=== PATIENT | female | born 1985 | race Asian ===

== ENCOUNTER 2017-01-23 00:30 | Inpatient (IN) | payer SELFPAY ==
[~2017-01-23] VITALS: Ht 162.6 cm; Wt 65.8 kg
[2017-01-23] MEDS ORDERED: PREN1SGL25 PO (01:44)
[2017-01-23] MEDS ORDERED: LACTATED RINGERS 1,000 ML IV SCH (01:44)
[2017-01-23] MEDS ORDERED: PROMETHAZINE 25 MG/ML VIAL IVP PRN (01:45)
[2017-01-23] MEDS ORDERED: METHYLERGONOVINE 0.2 MG/ML AMP IM PRN (01:45)
[2017-01-23] MEDS ORDERED: CARBOPROST 250 MCG/ML AMP IM PRN (01:45)
[2017-01-23] MEDS ORDERED: OXYTOCIN 10 UNITS/ML VIAL IM SCH (01:45)
[2017-01-23] MEDS ORDERED: NALBUPHINE HYDROCHLORIDE 10 MG/ML VIAL IVP PRN (01:45)
[2017-01-23] MEDS ORDERED: OXYTOCIN 20 UNITS/LR PREMIX 1,000 ML IV PRN (01:45)
[2017-01-23] MEDS ORDERED: MISOPROSTOL 25 MCG TAB VG PRN (01:50)
[2017-01-23] MEDS ORDERED: MISOPROSTOL 25 MCG TAB ONE (02:56)
[2017-01-23] MEDS ORDERED: OXYTOCIN 20 UNITS/LR PREMIX 1,000 ML IV ONE (03:04)
[2017-01-23 03:22] LABS: BASOPHILS % (AUTO) 0.3 % (0.0-2.0); EOSINOPHILS # (AUTO) 0.2 K/uL (0-0.4); EOSINOPHILS % (AUTO) 2.3 % (0.0-4.0); HEMATOCRIT 34.5 % (36-48); HEMOGLOBIN 11.6 g/dL (12.0-16.0); LYMPHOCYTES # (AUTO) 1.2 K/uL (2.5-16.5); LYMPHOCYTES % (AUTO) 13.7 % (20.5-51.1); MEAN CORPUSCULAR HEMOGLOBIN 32 pg (27-31); MEAN CORPUSCULAR HGB CONC 34 g/dL (33-37); MEAN CORPUSCULAR VOLUME 95 fL (80-94); MONOCYTES # (AUTO) 0.9 K/uL (0.8-1.0); MONOCYTES % (AUTO) 10.5 % (1.7-9.3); NEUTROPHILS # (AUTO) 6.4 K/uL (1.8-7.7); NEUTROPHILS % (AUTO) 73.2 % (42.2-75.2); PLATELET COUNT (AUTO) 132 K/uL (140-450); RED BLOOD CELL COUNT(AUTO) 3.65 MIL/uL (4.20-5.40); RED CELL DISTRIBUTION WIDTH 15.3 % (11.6-13.7); WHITE BLOOD COUNT (AUTO) 8.7 K/uL (4.8-10.8)
[2017-01-23 03:50] VITALS: BP 115/74
[2017-01-23 04:43] LABS: APPEARANCE,URINE SL CLOUDY (CLEAR); BILIRUBIN,URINE NEGATIVE (NEGATIVE); BLOOD, URINE NEGATIVE (NEGATIVE); COLOR,URINE YELLOW (YELLOW); LEUKOCYTE ESTERASE ,URINE NEGATIVE (NEGATIVE); NITRITE, URINE NEGATIVE (NEGATIVE); PROTEIN,URINE NEGATIVE (NEGATIVE); UGLUCOSE NEGATIVE (NEGATIVE); UROBILINOGEN,URINE 0.2 EU/dL (0.2 - 1)
[2017-01-23 04:55] LABS: BACTERIA,URINE FEW /HPF (None Seen); CALCIUM OXALATE CRYSTALS,UR 0-5 /HPF (None Seen); MUCUS,URINE 3+ /LPF (None Seen); RBC,URINE 0-5 (RARE) /HPF (0-5); SQUAMOUS EPITHELIAL CELL,UR 0-3 (FEW) /LPF (0-3 (FEW)); WBC,URINE 0-5 (RARE) /HPF (0-5)
[2017-01-23] MEDS ORDERED: ROPIVACAINE 0.2%/NS PREMIX 250 ML EPI ONE (05:51)
[2017-01-23] MEDS ORDERED: ROPIVACAINE 0.2%/NS PREMIX 250 ML EPI SCH (06:15)
--- NOTE | 2017-01-23 09:15 | NUR ---
PATIENT HAS BEEN SCREENED AND CATEGORIZED LOW NUTRITION RISK. PATIENT WILL BE SEEN WITHIN 7 DAYS OF ADMISSION. 01/29/[address]
[2017-01-23] MEDS ORDERED: AMPICILLIN 2,000 MG in NACL 0.9% 100 ML IV SCH (11:00)
[2017-01-23] MEDS ORDERED: AMPICILLIN 2,000 MG VIAL ONE (11:25)
[2017-01-23] MEDS ORDERED: OXYTOCIN 10 UNITS/ML VIAL ONE (11:53)
[2017-01-23] MEDS ORDERED: SODIUM PHOSPHATE 118 ML ENEM RC PRN (14:30)
[2017-01-23] MEDS ORDERED: IBUPROFEN 800 MG TAB PO PRN (14:30)
[2017-01-23] MEDS ORDERED: WITCH HAZEL 40 PAD PACKAGE TP PRN (14:30)
[2017-01-23] MEDS ORDERED: MEASLES, MUMPS, AND RUBELLA 1 VIAL SQVAC PRN (14:30)
[2017-01-23] MEDS ORDERED: oxyCODONE/APAP 5/325 MG 1 TAB TAB PO PRN (14:30)
[2017-01-23] MEDS ORDERED: BENZOCAINE/MENTHOL 20%-0.5% 60 GM CAN TP PRN (14:30)
[2017-01-23] MEDS ORDERED: TEMAZEPAM 15 MG CAP PO PRN (14:30)
[2017-01-23] MEDS ORDERED: HYDROcodone/APAP 5/325 MG 1 TAB TAB PO PRN (14:30)
[2017-01-23] MEDS ORDERED: MISOPROSTOL 100 MCG TAB RC SCH (14:35)
[2017-01-23] MEDS ORDERED: MISOPROSTOL 100 MCG TAB ONE (14:50)
[2017-01-23] MEDS ORDERED: DOCUSATE SOD/SENNA 50/8.6 MG 1 TAB PO SCH (21:00)
[2017-01-24 07:31] LABS: HEMATOCRIT 24.9 % (36-48); HEMOGLOBIN 8.4 g/dL (12.0-16.0)
[2017-01-25] MEDS ORDERED: FERROUS SULFATE 325 MG TABEC PO SCH (08:00)
== END 2017-01-25 16:25 | disposition home or self-care (01) | DRG 775 ==
LOC: MLD 00:30 → MFCC 09:45
PROVIDERS: ADMIT Obstetrics & Gynecology; ATTEND Obstetrics & Gynecology
PROC: 10D07Z6 Extraction of Products of Conception, Vacuum, Via Natural or Artificial Opening (ICD-10-PCS; principal; 2017-01-23)
PROC: 0W8NXZZ Division of Female Perineum, External Approach (ICD-10-PCS; 2017-01-23)
PROC: 00HU33Z Insertion of Infusion Device into Spinal Canal, Percutaneous Approach (ICD-10-PCS; 2017-01-23)
PROC: 3E0R3CZ (ICD-10-PCS; 2017-01-23)
DX: O69.81X0 Labor and delivery complicated by cord around neck, without compression, not applicable or unspecified (principal); E07.9 Disorder of thyroid, unspecified; O99.284 Endocrine, nutritional and metabolic diseases complicating childbirth; O89.4 Spinal and epidural anesthesia-induced headache during the puerperium; Z3A.39 39 weeks gestation of pregnancy; Z37.0 Single live birth; Z28.21 Immunization not carried out because of patient refusal
CPT/HCPCS: 36415; 51702; 81001; 85018; 85025; 86592; 86762; 86886; 86900; 86901; 87340; J0290; J2590; J2795; J7120